=== PATIENT | male | born 1945 | race Caucasian/White ===

== ENCOUNTER 2017-01-22 10:19 | Emergency (ER) | payer MEDICARE, BC ==
[2017-01-22 08:50] LABS: BASOPHILS 0.1 %; BASOPHILS ABSOLUTE 0.01 10/3/uL (0.0-0.16); EOSINOPHILS 0.1 %; EOSINOPHILS ABSOLUTE 0.01 10/3/uL (0.0-0.53); HEMATOCRIT 29.3 % (40.0-51.0); HEMOGLOBIN 9.9 g/dL (13.6-17.8); IMMATURE GRANULOCYTES 0.7 %; IMMATURE GRANULOCYTES ABSOLUTE 0.05 10/3/uL (0.0-0.11); LYMPHOCYTES 6.6 %; LYMPHOCYTES ABSOLUTE 0.47 10/3/uL (0.67-4.30); MANUAL DIFF NO %; MEAN CORPUS HGB CONC 33.8 g/dL (32.0-36.0); MEAN CORPUSCULAR HEMOGLOB 33.7 pg (26.0-34.0); MEAN CORPUSCULAR VOLUME 99.7 fL (80-100); MONOCYTES 7.9 %; MONOCYTES ABSOLUTE 0.56 10/3/uL (0.21-1.20); NEUTROPHILS 84.6 %; NEUTROPHILS ABSOLUTE 5.97 10/3/uL (2.02-8.40); PLATELET COUNT 184 10/3/uL (150-400); RBC DISTRIBUTION WIDTH 15.5 % (12.0-16.0); RED CELL COUNT 2.94 10/6/uL (4.7-6.1); WHITE BLOOD CELLS 7.1 10/3/uL (4.5-10.5)
[2017-01-22 08:58] LABS: INTERNATIONAL NORMAL RATI 2.2 UNITS (-); PARTIAL THROMBO TIME 52.3 SEC (22.5-37.2); PROTIME (NOT ORD) 23.9 SEC (12.0-14.5)
[2017-01-22 09:03] LABS: BUN (BLOOD UREA NITROGEN) 36 MG/DL (6-23); CALCIUM, SERUM 9.6 MG/DL (8.5-10.4); CHLORIDE, SERUM 106 MMOL/L (96-112); CO2 (CARBON DIOXIDE) 27 MMOL/L (24-34); CREATININE 1.22 MG/DL (0.70-1.30); GFR AFRICAN AMERICAN 68 ML/MIN (>=60); GFR NON AFRICAN AMERICAN 59 ML/MIN (>=60); GLUCOSE, SERUM 144 MG/DL (60-99); POTASSIUM, SERUM 4.9 MMOL/L (3.5-5.3); SODIUM, SERUM 134 MMOL/L (135-148)
[~2017-01-22 10:19] MED LIST: ACET500CAP PO; ALTACE10 MG PO; ANDRODERM5 TOP; C1 PO; CO Q-10100 MG PO; COLCRYS0.6 MG PO; COREG25 PO; COUMADIN6 MG PO; DEPO-TESTOS100 MG/ML IM; DOVONCR60 TOP; DURICEF PO; FESO4 PO; FLONASE NAS; JANTOVEN1 MG PO; JANTOVEN5 MG PO; JANTOVEN6 MG PO; JOINT HEALT1 PO; KLONO5 PO; KLOR-CON 1010 MEQ PO; L40 PO; LOVENOX80 SC; OCUVITE PO; OXYCOD PO; PRILOSEC40 MG PO; SUCR PO; TESTOSTERONE INJ IM; TESTOSTERONE TOP; ULTRAM50 PO; Z300 PO; ZETIA PO; ZOCOR20 PO; [UNRECOGNIZED DRUG - OTHER] PO
[2017-01-23] MEDS ORDERED: Z300 PO (19:30)
[2017-01-23] MEDS ORDERED: ALTA5 PO (19:30)
[2017-01-23] MEDS ORDERED: COREG12 PO (19:30)
[2017-01-23] MEDS ORDERED: ZETIA PO (19:31)
[2017-01-23] MEDS ORDERED: JANTOVEN7.5 MG PO (19:31)
[2017-01-23] MEDS ORDERED: L40 PO (19:31)
[2017-01-23] MEDS ORDERED: KLOR-CON M2020 MEQ PO (19:33)
[2017-01-23] MEDS ORDERED: DOVONCR60 TOP (19:34)
[2017-01-23] MEDS ORDERED: ACET500CAP PO (19:35)
[2017-01-23] MEDS ORDERED: NASACORTAQ NAS (19:35)
[2017-01-23] MEDS ORDERED: ZOFRAN ODT4 MG PO (19:36)
[2017-01-23] MEDS ORDERED: NORCO1 TA1 PO (19:39)
== END 2017-01-22 10:24 | disposition home or self-care (01) ==
LOC: ER 10:19
PROVIDERS: Nurse Practitioner
DX: M79.81 Nontraumatic hematoma of soft tissue (principal); D64.9 Anemia, unspecified; R79.89 Other specified abnormal findings of blood chemistry; I10 Essential (primary) hypertension; I48.91 Unspecified atrial fibrillation; Z88.8 Allergy status to other drugs, medicaments and biological substances; Z79.899 Other long term (current) drug therapy; Z79.01 Long term (current) use of anticoagulants
CPT/HCPCS: 80048; 85025; 85610; 85730; 93005; 99283; A9270-GY

== ENCOUNTER 2017-01-23 18:13 | Inpatient (IN) | payer MEDICARE, BC ==
--- NOTE | ~2017-01-23 | CN ---
Consultation Report [facility] [address] [place]. [address] NAME: CJ ROGERS III : 44 STATUS : ADM IN PAT#: [id number] AGE: 71 ADM/REG DATE : 01/23/17 MR#: [id number] REPORT SERV DATE: 01/25/17 DICTATED BY: EASTON DEE DATE: 01/24/17 REPORT STATUS : Draft TRANSCRIBED BY: MODL DATE: 01/24/17 CONSULTATION DATE OF CONSULTATION: 01/23/2017 INDICATIONS: Right thigh hematoma with anticoagulation due to atrial fibrillation, mechanical aortic and mitral valve replacements. HISTORY OF PRESENT ILLNESS: Mr. Rogers is a 71-year-old male with a history of chronic atrial fibrillation and mechanical aortic and mitral valve replacements due to rheumatic heart disease, who has been on Coumadin and Lovenox recently secondary to low INRs. He was seen two days ago in the ER with spontaneous right thigh pain of several weeks' duration and was found to have a small hematoma on ultrasound. Hemoglobin and hematocrit were relatively stable at that time. He was discharged for outpatient followup. Over the past two days, he has had significant progression in his right thigh hematoma with increasing pain and some dizziness and lightheadedness suggestive of symptomatic anemia. On admission, he had a CT scan of the thigh with suggestion of some muscle compromise and was seen by Orthopedic Surgery for compartment syndrome. He was not felt to have active compartment syndrome. He underwent a vascular interventional radiology procedure today which found an active right thigh bleeding etiology which was successfully coiled. He is now resting comfortably and somewhat confused. He has had no preceding angina or shortness of breath. Edema only isolated to the right lower extremity. He does have an ICD in situ with a history of nonischemic cardiomyopathy with no shocks. He denies any orthopnea or PND. REVIEW OF SYSTEMS: Pertinent positives and negatives are as outlined above, all others negative. PAST MEDICAL HISTORY: 1. Rheumatic heart disease, status post mechanical aortic and mitral valve replacements. 2. Chronic atrial fibrillation. 3. Nonischemic cardiomyopathy, EF 40%. 4. ICD in situ. 5. Hypertension. 6. Hyperlipidemia. HOME MEDICATIONS: 1. Carvedilol 12.5 mg twice daily. 2. Ramipril 5 mg daily. 3. Jantoven as directed. 4. Lasix 40 mg daily. 5. Allopurinol 150 mg daily. 6. Zofran 4 mg p.r.n. 7. Percocet p.r.n. Consultation Report [facility] [address] [place]. [address] NAME: CJ ROGERS III : 44 STATUS : ADM IN PAT#: [id number] AGE: 71 ADM/REG DATE : 01/23/17 MR#: [id number] REPORT SERV DATE: 01/25/17 DICTATED BY: EASTON DEE DATE: 01/24/17 REPORT STATUS : Draft TRANSCRIBED BY: JASPER DATE: 01/24/17 ALLERGIES: INCLUDE HEPARIN WHICH CAUSES FLU-LIKE SYMPTOMS. HE HAS NO DOCUMENTED HISTORY OF HEPARIN-INDUCED THROMBOCYTOPENIA. SOCIAL HISTORY: He does not use tobacco products, consume alcohol, or illegal drugs. FAMILY HISTORY: Significant for CAD. PHYSICAL EXAMINATION: VIAL SIGNS: Temperature is afebrile, pulse is 85, respirations 16, blood pressure 110/70. GENERAL: A well-developed male, who is currently confused after sedation, but resting comfortably in no acute distress. HEENT: Sclerae anicteric, mucous membranes moist and without lesions. NECK: No jugular venous distention. No hepatojugular reflux, carotid upstrokes 2+ and symmetric, there are no carotid or subclavian bruit. LUNGS: Clear to auscultation without wheezes, crackles, or rales. CARDIOVASCULAR: Irregularly irregular with mechanical S1 and S2. No audible S3. No audible murmurs. No parasternal lift. PMI is not palpable. ABDOMEN: Soft and nontender. Bowel sounds positive and normoactive. No hepatomegaly, no masses, no abdominal bruit. PULSES: Radial and dorsalis pedis pulses are 2+ and symmetric. EXTREMITIES: Warm with trivial right lower extremity edema. There is a large and firm right thigh hematoma with ecchymosis from the inguinal ligament to the knee. SKIN: No clubbing or cyanosis, no rashes or lesions. IMPRESSION: 1. Mechanical aortic and mitral valve replacements due to rheumatic heart disease. 2. Chronic atrial fibrillation. 3. Nonischemic cardiomyopathy, EF 40%. 4. ICD in situ. 5. Acute blood loss anemia. 6. Acute renal failure/acute kidney injury. 7. Right thigh hematoma, spontaneous. 8. Abnormal troponin, noncardiac etiology. PLAN: Mr. Rogers has a large right thigh hematoma from a spontaneous bleed while on Lovenox and Coumadin due to subtherapeutic INRs. He had a vascular interventional radiology coiling of an active bleeding source. He is being evaluated by Orthopedic Surgery for questionable decompression. If he does need to proceed to the OR, we would allow passive INR with reduction to less than 1.8 and proceed to surgery as needed. Postoperatively, we will start low-dose heparin with no bolus and when his INR is greater than 2, recommend stopping heparin and starting aspirin 81 mg daily with an ultimate goal INR on the low end of therapeutic for mechanical mitral and aortic valves at 2.5 to 3.0. No further cardiac evaluation warranted at this time. Please call with questions. Consultation Report [facility] [address] [place]. [address] NAME: CJ ROGERS III : 44 STATUS : ADM IN PAT#: [id number] AGE: 71 ADM/REG DATE : 01/23/17 MR#: [id number] REPORT SERV DATE: 01/25/17 DICTATED BY: EASTON DEE. DATE: 01/24/17 REPORT STATUS : Draft TRANSCRIBED BY: JASPER DATE: 01/24/17 AEA/JASPER Easton Dee M.D. / [id number] CC: Cal Kay M.D.
--- NOTE | ~2017-01-23 | OP ---
Record Of Operation [facility] [address] [place]. [address] NAME: CJ ROGERS III : 43 STATUS : ADM IN [facility]#: [id number] AGE: 71 ADM/REG DATE : 01/23/17 MR#: [id number] REPORT SERV DATE: 01/30/17 DICTATED BY: TEOFILO MARIN DATE: 01/30/17 REPORT STATUS : Draft TRANSCRIBED BY: MODL DATE: 01/30/17 DATE OF PROCEDURE: 01/30/2017 PREOPERATIVE DIAGNOSIS: Right thigh recurrent hematoma. POSTOPERATIVE DIAGNOSIS: Right thigh recurrent hematoma. PROCEDURE: Right thigh debride hematoma. SURGEON: Celine Marin M.D. DEAF TEACHER: See chart. DESCRIPTION OF PROCEDURE: The patient was taken to the operating room and placed supine on the table in normal fashion without an incident. General anesthetic was induced per the anesthesiologist. The patient was carefully positioned, padded, prepped, and draped in normal sterile fashion. Sharp dissection was made through the old incision with electrocautery through the fat. The fascial sutures were opened and a large hematoma seroma was debrided. The wound was copiously irrigated with pulsatile lavage and then filled with TXA and then with Gelfoam soaked with thrombin. The wound was then closed in a layered fashion with medium drain. There was no evidence of active bleeding. COMPLICATIONS: None. SPECIMENS: None. WTB/JASPER Celine Marin M.D. / [id number] CC: Teofilo Rdoriguez Jr, MD John Laramore, M.D.
--- NOTE | ~2017-01-23 | HP ---
History And Physical [facility] [address] [place]. [address] NAME: CJ ROGERS III : 44 STATUS : ADM IN [facility]#: [id number] AGE: 71 ADM/REG DATE : 01/23/17 MR#: [id number] REPORT SERV DATE: 01/24/17 DICTATED BY: MAAME HO DATE: 01/23/17 REPORT STATUS : Draft TRANSCRIBED BY: MODL DATE: 01/23/17 DATE OF ADMISSION: 01/23/2017 CHIEF COMPLAINT: A 71-year-old male presenting with increasing right thigh pain and evidence of hematoma with acute blood loss anemia. HISTORY OF PRESENT ILLNESS: The patient's history was obtained through careful interview with the patient, coupled with review of [facility] medical records. The patient three weeks ago went to see his primary care physician to check his INR to follow up regarding aortic and mitral valve prosthetic replacements and atrial fibrillation. His INR at that time was 1.5, and his dose of Jantoven was increased, and he was also placed on therapeutic Lovenox. About a week later, he still had a subtherapeutic INR of 1.7 and so was instructed to continue Jantoven and Lovenox shots. About two weeks ago on the Lovenox shots, he went to [place] and was doing some extra activity and exercise while there and thought that he might have strained his right thigh. But then as the week continued, he noticed he had swelling and pain in that thigh out of proportion to an exercise injury. Over this last week, the right thigh has really began to hurt intensely and continually. Four nights ago, he came to the emergency department. An ultrasound demonstrated a hematoma and then because of increasing pain, he came to the emergency department again three nights ago and was placed on hydrocodone. He describes right thigh pain radiating into the groin has an "electric shock," shooting quality pain, 9/10 severity. He has had nausea with dry heaves, but no actual vomiting, a very poor appetite. In the last two days, he has had lightheadedness and near syncope. No chest pain. No shortness of breath. No change of bowel or bladder habit. REVIEW OF SYSTEMS: Otherwise, a 14-point review of systems was obtained and was negative. PAST MEDICAL HISTORY: 1. [employer]'s aortic and mitral valve replacements in 1988 prosthetic valves, on chronic Jantoven. 2. Congestive heart failure. 3. Pacemaker. 4. Atrial fibrillation, seen by Dr. Stratton. History And Physical [address] [place]. [address] NAME: CJ ROGERS III : 44 STATUS : ADM IN PAT#: [id number] AGE: 71 ADM/REG DATE : 01/23/17 MR#: [id number] REPORT SERV DATE: 01/24/17 DICTATED BY: MAAME HO DATE: 01/23/17 REPORT STATUS : Draft TRANSCRIBED BY: MODLakisha DATE: 01/23/17 5. Psoriasis. 6. Gout. 7. Diverticulosis and colon polyps, seen by Dr. Lawrence. 8. Chronic kidney disease, stage III. Baseline creatinine of 1.3 to 1.6. 9. Left shoulder DVT 1984. 10.Hypotestosteronism. PAST SURGICAL HISTORY: 1. Mechanical prosthetic valves, aortic valve, and mitral valve 1988. 2. Right hip surgery by Dr. Castrejon. 3. Pacemaker. 4. Left knee surgery. ALLERGIES: POSSIBLE INTOLERANCE TO HEPARIN?. SOCIAL HISTORY: No tobacco abuse. Social alcohol use. He is . Has children. Retired from working at a job in [employer]. FAMILY HISTORY: Myocardial infarction, cancer, and diabetes. CURRENT MEDICATIONS: Include Tylenol, allopurinol 150 mg p.o. daily, topical agents, Coreg 12.5 mg p.o. b.i.d., Zetia 10 mg p.o. daily, Lasix 40 mg p.o. daily, hydrocodone 5 every four hours p.r.n., Zofran, potassium 20 mEq p.o. daily, Altace 5 mg p.o. daily, Nasacort, and Jantoven 7.5 mg p.o. at bedtime. PHYSICAL EXAMINATION: VITAL SIGNS: Temperature 98.4, pulse 75, blood pressure 92/47, respiratory rate 22, O2 saturation 99% on room air. GENERAL: A pleasant, cooperative, male. No evidence of acute distress. HEENT: Pupils equal, round, and reactive to light. No conjunctival pallor. No scleral icterus. Nares are patent. Oropharynx is clear of obstruction. Moist mucous membranes. NECK: Trachea midline. No thyromegaly. LYMPH: No cervical lymphadenopathy. No supraclavicular lymphadenopathy. RESPIRATORY: Clear to auscultation at bases. No wheezes, rales, or rhonchi. Normal respiratory effort. CARDIOVASCULAR: Regular rate and rhythm. The patient has a good click on examination with no murmurs, no rubs, no gallops. No extremity edema is appreciated. ABDOMEN: Soft, nontender, nondistended. Normal bowel sounds auscultated throughout. No hepatosplenomegaly. Right thigh is tight. By my examination, there is no evidence of compartment syndrome at this time. There is slight bruising and discoloration consistent with underlying hematoma. DERMATOLOGICAL: Warm and dry. EXTREMITIES: No pallor. No cyanosis. PSYCHIATRIC: Normal affect. Good mood. Alert and oriented x3. LABORATORY DATA: White blood cell count 10.4, hemoglobin 8.4, hematocrit 25.1, platelets 244. Sodium 135, potassium 5.3, chloride 102, bicarb 28, BUN 47, creatinine 1.86, glucose History And Physical [address] [address] NAME: CJ ROGERS III : 43 STATUS : ADM IN [facility]#: [id number] AGE: 71 ADM/REG DATE : 01/23/17 MR#: [id number] REPORT SERV DATE: 01/24/17 DICTATED BY: MAAME HO DATE: 01/23/17 REPORT STATUS : Draft TRANSCRIBED BY: JASPER DATE: 01/23/17 133. Troponin 0.28, INR 2.4. STUDIES: 1. Chest x-ray shows cardiomegaly, but no acute abnormality compared to old x-ray. 2. CT scan of the right thigh shows an increasing right thigh hematoma measuring 22 x 11 x 8.7 cm. ASSESSMENT AND PLAN: 1. Large right thigh hematoma. No evidence of compartment syndrome though. Consult Surgery Dr. Castrejon. 2. Acute blood loss anemia, symptomatic. We will transfuse blood. 3. Coagulopathy, has been on Jantoven and therapeutic Lovenox for about three weeks. We will hold Lovenox. Continue Coumadin because of mechanical [employer]ani's aortic and mitral valves. Consult Dr. Stratton, plastic parts fabricator. If the patient does need surgical intervention, we will need to bridge with heparin. 4. Acute kidney injury. Placed on IV fluids. Transfuse blood. Hold Lasix for now. 5. Shock. Placed on IV fluids. Transfuse blood. We will write parameters for blood pressure medications. 6. Atrial fibrillation. Check telemetry. 7. Elevated troponin, but no chest pain. I believe this is a stress response? The patient is on therapeutic Coumadin. KPL/MODL Maame Ho M.D. / [id number] CC: Cal Kay M.D. Allen E Atchley, M.D. John Nash, M.D.
--- NOTE | ~2017-01-23 | IDS ---
Interim Discharge Summary [facility] [address] [place]. [address] NAME: CJ ROGERS III : 44 STATUS : ADM IN [facility]#: [id number] AGE: 71 ADM/REG DATE : 01/23/17 MR#: [id number] REPORT SERV DATE: 01/29/17 DICTATED BY: EULALIA DUNLAP DATE: 01/29/17 REPORT STATUS : Draft TRANSCRIBED BY: MODL DATE: 01/29/17 ADMISSION DATE: 01/23/2017 DISCHARGE DATE: PROBLEM LIST: 1. Right thigh hematoma, on Coumadin and Lovenox status post arteriogram and coil implanted by intervention radiologist, then he had an evacuation with Dr. Castrejon. It is improving after the evacuation. 2. Acute blood loss anemia. Had a total transfusion of 4 units of packed RBC and 2 units FFP to reverse in Coumadin, given prior to the surgery. 3. Chronic Coumadin use for mechanical valve and atrial fibrillation, the patient was on bridge therapy with Lovenox and Coumadin prior to this bleeding episodes due to the subtherapeutic INR level, and his regular dose was 6.5 mg at home, and it went up to 7.5 due to the low INR prior to this bleeding when he was also started on bridging therapy with Lovenox. We decided to go back to 7 mg on discharge and follow up at the [facility]. 4. History of ischemic cardiomyopathy, which is very stable with the current home dose of diuretics. CONSULTANTS: 1. Dr. Interventional Radiology. 2. Dr. Castrejon. 3. Dr. Stratton. PROCEDURES: 1. Arteriogram and angioplasty for the bleeding. 2. Evacuation with Dr. Castrejon. HISTORY OF PRESENT ILLNESS: This is a 71-year-old male patient, who was on the Lovenox and Coumadin for mechanical valve due to the subtherapeutic INR. Came to the hospital with right thigh hematoma and bleeding with anemia. Please see the dictated H and P. HOSPITAL COURSE: He has had a mechanical valve for many years, and recently his INR went to subtherapeutic level, and Lovenox was bridged with his Coumadin therapy, and he did have some extraneous muscle activity, but there is no other focal trauma, and he developed the swelling and pain, and he visited the emergency room at that time. His INR was 2.2, but his bleeding was continued. He ended up being in the hospital admitted with the hematoma and anemia. Dr. Castrejon was consulted for hematoma. He recommended intervention radiologist to check the arteriogram first. He went down to arteriogram. Please look at the result from the arteriogram from Dr. Garcia. He did coiling, but next day, his hematoma was not getting any better. Eventually, his INR was reversed and transfused, then Dr. Castrejon took him to the OR. He did have evacuation for hematoma, and he is doing very well from that point. His swelling is much improved, and he is back on Coumadin and heparin. His INR is 1.8. Our goal is to make his INR before the discharge to 2. We are going to continue the heparin Interim Discharge Summary [facility] [address] [place]. [address] NAME: CJ ROGERS III : 43 STATUS : ADM IN [facility]#: [id number] AGE: 71 ADM/REG DATE : 01/23/17 MR#: [id number] REPORT SERV DATE: 01/29/17 DICTATED BY: EULALIA DUNLAP DATE: 01/29/17 REPORT STATUS : Draft TRANSCRIBED BY: MODL DATE: 01/29/17 until he gets above 1.8, and his usual dose was 6.5 daily, recently went up to 7.5, so we are making his discharge Coumadin at 7 mg. He has been tolerating all these treatments, and stabilized. We are awaiting his INR to be at the goal before the discharge. EKL/MODL Eulalia Dunlap M.D. / [id number] CC: Cal Kay M.D.
--- NOTE | ~2017-01-23 | OP ---
Record Of Operation [facility] [address] [place]. [address] NAME: CJ ROGERS III : 43 STATUS : ADM IN PAT#: [id number] AGE: 71 ADM/REG DATE : 01/23/17 MR#: [id number] REPORT SERV DATE: 01/26/17 DICTATED BY: ILEANA CASTREJON DATE: 01/25/17 REPORT STATUS : Draft TRANSCRIBED BY: MODL DATE: 01/25/17 DATE OF PROCEDURE: 01/25/2017 PREOPERATIVE DIAGNOSIS: Right anterior thigh spontaneous hematoma. POSTOPERATIVE DIAGNOSIS: Right anterior thigh spontaneous hematoma. PROCEDURE PERFORMED: Right anterior thigh hematoma evacuation. SURGEON: Ileana Castrejon M.D. STRICKLER ATTENDANT: Milka Lucio. ANESTHESIA: General. PROCEDURE IN DETAIL: The patient was clearly identified. After obtaining informed consent, he was brought to the operating room at [facility] where he was induced under general anesthesia. His entire right lower extremity was prepped and draped in the usual manner from high on his thigh, and groin to his toes for access. Subsequently, the time-out procedure was performed and through an anterior approach to the mid thigh the skin was divided approximately 4 inches in length. Care was taken to avoid the lateral cutaneous femoral nerve and after entering the skin, dissection was performed through the anterior fascia into the rectus region where there was a hematoma under some pressure and massive amounts of clot, this was all carefully removed, nearly 600 mL was noted. Careful inspection through these tissues though revealed no specific arterial bleed at all. There is perhaps just slight venous ooze. Dr. Nguyen from Vascular was nearby and actually was in the room for a while to exam of the wound as well to see if there was any vascular bleeding or arterial bleeding that would be of concern for any specific care or treatment, none being found, pulsatile lavage was performed through the tissues. Again, reinspection reveals no particular bleeding at this point, which was quite good, and this concluded. Giuliana was placed to the tissues, and a large Hemovac drain was placed, and the areas were carefully closed in layers. The leg was cleansed and dressed. This was then wrapped from toes to proximal groin in a gentle fashion to help limit the ability for recurrence and avoid present. the patient returned to the recovery room in stable condition having tolerated the procedure well. ESTIMATED BLOOD LOSS: 100 mL. FLUIDS: 1000 with two units of packed cells. Approximately 600 mL of hematoma were removed. TOURNIQUET TIME: None. PATHOLOGY: None. Record Of Operation [facility] [address] [place]. [address] NAME: CJ ROGERS III : 43 STATUS : ADM IN PAT#: [id number] AGE: 71 ADM/REG DATE : 01/23/17 MR#: [id number] REPORT SERV DATE: 01/26/17 DICTATED BY: ILEANA CASTREJON DATE: 01/25/17 REPORT STATUS : Draft TRANSCRIBED BY: JASPER DATE: 01/25/17 MICROBIOLOGY: None. COMPLICATIONS: None. SPONGE AND NEEDLE COUNTS: Reportedly correct. ANTIBIOTICS: Administered appropriately preoperatively and ordered to be discontinued within 23 hours. CLEMENT/JASPER Ileana Castrejon M.D. / [id number] CC: Cal Kay M.D.
--- NOTE | ~2017-01-23 | DS ---
Discharge Summary [facility] [address] [place]. [address] NAME: CJ ROGERS III : 43 STATUS : DIS IN PAT#: [id number] AGE: 71 ADM/REG DATE : 01/23/17 MR#: [id number] REPORT SERV DATE: 02/04/17 DICTATED BY: JR. RODRIGUEZ WILLIAM JOHN DATE: 02/03/17 REPORT STATUS : Draft TRANSCRIBED BY: JASPER DATE: 02/03/17 ADMISSION DATE: 01/23/2017 DISCHARGE DATE: 02/03/2017 DISCHARGE DIAGNOSES: 1. Right thigh hematoma, on anticoagulation therapy. 2. Mechanical aortic and mitral valve replacements. 3. Acute blood loss anemia. 4. History of ischemic cardiomyopathy. OPERATIONS, PROCEDURES, AND TREATMENTS: Include: 1. Transfusion of 5 units packed red blood cells, 2 units of fresh frozen plasma between 01/23 and 01/25. 2. Chest x-ray done 01/23/2017 which showed no acute findings. 3. CT of the right lower extremity showed large variable density hematoma involving the muscles with anterior compartment of the right thigh suggestive of a subacute bleed with density being 61 Hounsfield units, measuring 22 x 11 x 8.7 cm. There was no underlying fracture. There was intact right total hip arthroplasty component. 4. Left lower extremity angiography, which showed bleeding site identified originating from the superior medial geniculate branches, a portion of which was embolized. 5. Right femur x-ray done 01/24 showed intact arthroplasty. 6. Left tibia-fibula x-ray was negative. 7. Right anterior thigh hematoma evacuation done 01/[address] Castrejon. 8. Right thigh debridement of the hematoma done by Dr. Tomlin on 01/30. DISCHARGE MEDICATIONS: Include: 1. Allopurinol 150 mg orally daily. 2. Dovonex topically for psoriasis. 3. Coreg 12.5 mg orally twice a day. 4. Zetia 10 mg orally daily. 5. Ferrous sulfate 300 mg twice a day. 6. Lasix 40 mg orally daily. 7. Multivitamin tablet orally daily. 8. Ramipril 5 mg orally daily. 9. Nasacort daily. 10.Coumadin 12.5 mg orally daily, dispensing 7 day supply. HOSPITAL COURSE: The patient was a 71-year-old male who presented to emergency room on 01/23 with increasing right pain and evidence of acute blood loss anemia and hematoma. The patient is on chronic Coumadin with a target INR of 2.5 to 3.5 for metallic prosthetic aortic and mitral valve. The patient had been stable between 6 and 7.5 mg of Coumadin for years, apparently he has began taking an immunoactive psoriasis medications 1 to 2 months ago and since that time, he has required more Coumadin. He went to his primary care physician about 3 weeks prior to presentation. His INR was only 1.5. He was placed on Lovenox as a bridge as his Jantoven (warfarin) was increased. He went to [place] 1 week Discharge [place] [id number] [place]. [address] NAME: CJ ROGERS III : 43 STATUS : DIS IN PAT#: [id number] AGE: 71 ADM/REG DATE : 01/23/17 MR#: [id number] REPORT SERV DATE: 02/04/17 DICTATED BY: JR. RODRIGUEZ WILLIAM JOHN DATE: 02/03/17 REPORT STATUS : Draft TRANSCRIBED BY: JASPER DATE: 02/03/17 later and had more exercise than normal, began to notice swelling. This continued and worsened and he presented to the emergency room. Upon initial exam, his temperature was 98.4, heart rate 75, respiratory rate 20, blood pressure 92/47. Exam was remarkable for a swollen thigh without evidence of compartment syndrome. Initial hemoglobin was 8.4, initial BUN was 47, creatinine 1.8. CT and chest x-ray are detailed above. The patient was admitted to the hospital. He was seen in consultation by Dr. Castrejon of Orthopedic Surgery. He went to Interventional Radiology for angiography and embolization of a portion of the bleeding vessel was performed by Dr. Garcia. The patient was also seen by Dr. Stratton of Cardiology at that time. After the embolization procedure, the patient's hematoma continued to expand. His INR was reversed with fresh frozen plasma. He was given blood for his acute blood loss anemia, and he was taken to the operating room by Dr. Castrejon for evacuation of the hematoma. Postop, he was placed on a heparin drip. The target was an INR of 2.5. Unfortunately, he required a second evacuation of the hematoma and it was felt by all involved that the heparin in combination with Coumadin was the biggest risk factor for his rebleed. Once the patient's INR hit 1.9, his heparin drip was discontinued. He was on between 12.5 and 15 units of Coumadin daily. The patient's INR today is 2.5. He strongly desires discharge home. He [facility] [place]. I discussed with pharmacy what dose to send him home on and we agreed on Coumadin 12.5 mg daily with an INR check Sunday [facility] the [facility]. The patient will be discharged home today 02/03/2017 and will follow up with Dr. Gerber in one week. We will get an INR checked on Sunday and will follow up with Orthopedic Surgery per their with wishes with Dr. Stratton as scheduled. DISCHARGE DIET: Will be regular. ACTIVITY: As tolerated. For discharge exam and laboratory, please see daily progress note. This discharge took 35 minutes for patient encounter, coordination of care, and documentation. DICTATED BY: Teofilo Rodriguez Jr, MD WCarlyF/JASPER Teofilo Rodriguez Jr, MD / [id number] CC: Discharge Summary [address] [address] NAME: CJ ROGERS III : 43 STATUS : DIS IN PAT#: [id number] AGE: 71 ADM/REG DATE : 01/23/17 MR#: [id number] REPORT SERV DATE: 02/04/17 DICTATED BY: JR. RODRIGUEZ WILLIAM JOHN DATE: 02/03/17 REPORT STATUS : Draft TRANSCRIBED BY: JASPER DATE: 02/03/17 Teofilo Rodriguez Jr, MD John Laramore, M.D.
--- NOTE | ~2017-01-23 | CN ---
Consultation Report [facility] [place] [address] [place]. [address] NAME: CJ ROGERS III : 43 STATUS : ADM IN PAT#: [id number] AGE: 71 ADM/REG DATE : 01/23/17 MR#: [id number] REPORT SERV DATE: 01/25/17 DICTATED BY: EASTON DEE DATE: 01/24/17 REPORT STATUS : Draft TRANSCRIBED BY: MODL DATE: 01/24/17 CARDIOLOGY CONSULT NOTE DATE OF CONSULTATION: 01/23/2017 INDICATION: Anticoagulation management with mechanical aortic valve, mechanical mitral valve, and atrial fibrillation in the setting of his spontaneous right thigh hematoma. HISTORY OF PRESENT ILLNESS: Mr. Rogers is a 71-year-old male with a history of rheumatic heart disease status post remote mechanical aortic and mitral valve replacements. His care is further complicated by chronic atrial fibrillation and a nonischemic cardiomyopathy with an LVEF of 40%. He is on chronic Coumadin with a goal INR of 2.5 to 3.5. He had been out of town recently with some subtherapeutic INRs and Lovenox was added to his regimen while awaiting a therapeutic INR. In the setting of this, he was doing more strenuous activity on a new exercise regimen and he developed relatively abrupt onset right thigh pain that slowly progressed over a period of several days. He presented to the emergency room several days ago with an INR of 2.2 while on Lovenox and had a small hematoma that appeared soft and otherwise stable. He was scheduled for outpatient followup, but his right thigh hematoma progressed rapidly over the next two days with increasing pain and symptoms of orthostasis with dizziness and lightheadedness. On arrival to the ER, he had a very large right thigh hematoma with concern for possible compartment syndrome. He had acute renal failure as well. He was given packed red blood cells and early today underwent right lower extremity angiography with Interventional Radiology that found an active bleeding source which was coiled. He has been seen by Orthopedic Surgery for consideration of decompression and hematoma evacuation. He is a bit confused at this time after sedation, but denies having any symptoms of recent chest pain or shortness of breath. He has had some isolated right lower extremity edema with his hematoma. He denies palpitations or syncope. He has had no ICD shocks with an ICD in situ since 2014. REVIEW OF SYSTEMS: Pertinent positives and negatives are as outlined above, all others negative. PAST MEDICAL HISTORY: 1. Rheumatic heart disease, status post remote mechanical aortic and mitral valve replacements. 2. Chronic atrial fibrillation. 3. CAD, nonobstructive. 4. Nonischemic cardiomyopathy, EF 40%. 5. ICD in situ. 6. Hypertension. 7. Hyperlipidemia. CURRENT MEDICATIONS: 1. Carvedilol 12.5 mg twice daily. 2. Lasix 40 mg daily. Consultation Report [place] [address] [place]. [address] NAME: CJ ROGERS III : 43 STATUS : ADM IN PAT#: [id number] AGE: 71 ADM/REG DATE : 01/23/17 MR#: [id number] REPORT SERV DATE: 01/25/17 DICTATED BY: EASTON DEE DATE: 01/24/17 REPORT STATUS : Draft TRANSCRIBED BY: JASPER DATE: 01/24/17 3. Zetia 10 mg daily. 4. Ramipril 5 mg daily. 5. Potassium supplementation. 6. Jantoven as directed. 7. Allopurinol 150 mg daily. 8. Tylenol p.r.n. 9. Stanley p.r.n. 10.Zofran p.r.n. ALLERGIES: INCLUDE HEPARIN WHICH CAUSES FLU-LIKE SYMPTOMS. THERE IS NO HISTORY OF HEPARIN- INDUCED THROMBOCYTOPENIA. SOCIAL HISTORY: He does not use tobacco products, consume alcohol, or illegal drugs. FAMILY HISTORY: Significant for CAD. PHYSICAL EXAMINATION: VITAL SIGNS: Temperature is afebrile, pulse is 85, respirations 16, and blood pressure is 110/70. GENERAL: Well-developed man who is a bit confused after sedation, but resting comfortably, lying flat. HEENT: Sclerae anicteric, mucous membranes moist and without lesions. NECK: No jugular venous distention. No hepatojugular reflux, carotid upstrokes 2+ and symmetric, there are no carotid or subclavian bruit. LUNGS: Clear to auscultation without wheezes, crackles, or rales. CARDIOVASCULAR: Irregularly irregular with mechanical S1 and mechanical S2. No audible murmurs. No parasternal lift. PMI is not palpable. ABDOMEN: Soft, nontender. Bowel sounds positive and normoactive. PULSES: Radial and dorsalis pedis pulses are 2+ and symmetric. EXTREMITIES: Warm and there is 1+ right lower extremity edema. There is a very large and firm right thigh hematoma with ecchymoses extending from the inguinal ligament down to the knee. SKIN: No clubbing or cyanosis, no rashes or lesions. IMPRESSION: 1. Mechanical aortic and mitral valve replacements due to rheumatic heart disease. 2. Chronic atrial fibrillation. 3. Nonischemic cardiomyopathy, EF 40%. 4. ICD in situ. 5. Acute blood loss anemia. 6. Acute renal failure, resolving. 7. Right thigh hematoma. 8. Abnormal troponin at 0.2, noncardiac with no significant history of CAD during acute presentation. This maybe due to noncardiac etiology with his large right thigh hematoma. Consultation Report [place] [id number] [place]. [address] NAME: CJ ROGERS III : 43 STATUS : ADM IN [facility]#: [id number] AGE: 71 ADM/REG DATE : 01/23/17 MR#: [id number] REPORT SERV DATE: 01/25/17 DICTATED BY: EASTON DEE. DATE: 01/24/17 REPORT STATUS : Draft TRANSCRIBED BY: JASPER DATE: 01/24/17 PLAN: Mr. Rogers has had a spontaneous right thigh hematoma with vascular interventional radiology coiling of an active bleeding source identified today. Orthopedic Surgery is following for consideration of hematoma evacuation and surgical decompression. If he proceed to the OR, we would allow Coumadin to passively fall to less than 1.8 off anticoagulation for now and then proceed to the OR. Postoperatively, we will start a heparin drip with no bolus. When his INR is greater than 2, we would stop heparin and start. DICTATION ENDS HERE AEA/MODL Easton Dee M.D. / [id number] CC: Cal Kay M.D.
[2017-01-23 18:51] LABS: BASOPHILS 0.3 %; BASOPHILS ABSOLUTE 0.03 10/3/uL (0.0-0.16); EOSINOPHILS 0.4 %; EOSINOPHILS ABSOLUTE 0.04 10/3/uL (0.0-0.53); ER CBC TAT 0 Hrs 08 Mins; HEMATOCRIT 25.1 % (40.0-51.0); HEMOGLOBIN 8.4 g/dL (13.6-17.8); IMMATURE GRANULOCYTES 0.4 %; IMMATURE GRANULOCYTES ABSOLUTE 0.04 10/3/uL (0.0-0.11); LYMPHOCYTES ABSOLUTE 1.35 10/3/uL (0.67-4.30); MANUAL DIFF NO %; MEAN CORPUS HGB CONC 33.5 g/dL (32.0-36.0); MEAN CORPUSCULAR HEMOGLOB 33.1 pg (26.0-34.0); MEAN CORPUSCULAR VOLUME 98.8 fL (80-100); MEAN PLATELET VOLUME 10.9 fL (9.2-13.0); MONOCYTES 6.1 %; MONOCYTES ABSOLUTE 0.63 10/3/uL (0.21-1.20); NEUTROPHILS 79.8 %; NEUTROPHILS ABSOLUTE 8.32 10/3/uL (2.02-8.40); PLATELET COUNT 244 10/3/uL (150-400); RBC DISTRIBUTION WIDTH 15.6 % (12.0-16.0); RED CELL COUNT 2.54 10/6/uL (4.7-6.1); WHITE BLOOD CELLS 10.4 10/3/uL (4.5-10.5)
[2017-01-23 19:07] LABS: CALCIUM, SERUM 9.3 MG/DL (8.5-10.4); CHLORIDE, SERUM 102 MMOL/L (96-112); CO2 (CARBON DIOXIDE) 28 MMOL/L (24-34); GLUCOSE, SERUM 133 MG/DL (60-99); INTERNATIONAL NORMAL RATI 2.4 UNITS (-); PARTIAL THROMBO TIME 53.5 SEC (22.5-37.2); POTASSIUM, SERUM 5.3 MMOL/L (3.5-5.3); PROTIME (NOT ORD) 25.7 SEC (12.0-14.5); SODIUM, SERUM 135 MMOL/L (135-148)
[2017-01-23 19:12] LABS: BUN (BLOOD UREA NITROGEN) 47 MG/DL (6-23); CHEST PAIN PROFILE TAT 0 Hrs 29 Mins; CREATININE 1.86 MG/DL (0.70-1.30); GFR AFRICAN AMERICAN 41 ML/MIN (>=60); GFR NON AFRICAN AMERICAN 35 ML/MIN (>=60); TROPONIN I 0.28 NG/ML (<0.05)
[2017-01-23] MEDS ORDERED: COREG12 PO (19:30)
[2017-01-23] MEDS ORDERED: Z300 PO (19:30)
[2017-01-23] MEDS ORDERED: ALTA5 PO (19:30)
[2017-01-23] MEDS ORDERED: JANTOVEN7.5 MG PO (19:31)
[2017-01-23] MEDS ORDERED: L40 PO (19:31)
[2017-01-23] MEDS ORDERED: ZETIA PO (19:31)
[2017-01-23] MEDS ORDERED: KLOR-CON M2020 MEQ PO (19:33)
[2017-01-23] MEDS ORDERED: DOVONCR60 TOP (19:34)
[2017-01-23] MEDS ORDERED: ACET500CAP PO (19:35)
[2017-01-23] MEDS ORDERED: NASACORTAQ NAS (19:35)
[2017-01-23] MEDS ORDERED: ZOFRAN ODT4 MG PO (19:36)
[2017-01-23] MEDS ORDERED: NORCO1 TA1 PO (19:39)
[2017-01-24 04:21] LABS: BASOPHILS 0.2 %; BASOPHILS ABSOLUTE 0.02 10/3/uL (0.0-0.16); EOSINOPHILS 0.2 %; EOSINOPHILS ABSOLUTE 0.02 10/3/uL (0.0-0.53); HEMATOCRIT 23.6 % (40.0-51.0); HEMOGLOBIN 8.1 g/dL (13.6-17.8); IMMATURE GRANULOCYTES 0.6 %; IMMATURE GRANULOCYTES ABSOLUTE 0.05 10/3/uL (0.0-0.11); LYMPHOCYTES 15.1 %; LYMPHOCYTES ABSOLUTE 1.29 10/3/uL (0.67-4.30); MEAN CORPUS HGB CONC 34.3 g/dL (32.0-36.0); MEAN CORPUSCULAR HEMOGLOB 33.1 pg (26.0-34.0); MEAN CORPUSCULAR VOLUME 96.3 fL (80-100); MEAN PLATELET VOLUME 10.7 fL (9.2-13.0); MONOCYTES 8.4 %; MONOCYTES ABSOLUTE 0.72 10/3/uL (0.21-1.20); NEUTROPHILS 75.5 %; NEUTROPHILS ABSOLUTE 6.45 10/3/uL (2.02-8.40); PLATELET COUNT 213 10/3/uL (150-400); RED CELL COUNT 2.45 10/6/uL (4.7-6.1); WHITE BLOOD CELLS 8.6 10/3/uL (4.5-10.5)
[2017-01-24 04:22] LABS: INTERNATIONAL NORMAL RATI 2.3 UNITS (-); MANUAL DIFF NO %
[2017-01-24 04:23] LABS: PARTIAL THROMBO TIME 61.9 SEC (22.5-37.2)
[2017-01-24 04:40] LABS: BUN (BLOOD UREA NITROGEN) 46 MG/DL (6-23); CALCIUM, SERUM 8.6 MG/DL (8.5-10.4); CHLORIDE, SERUM 104 MMOL/L (96-112); CO2 (CARBON DIOXIDE) 26 MMOL/L (24-34); CREATININE 1.56 MG/DL (0.70-1.30); GFR AFRICAN AMERICAN 51 ML/MIN (>=60); GFR NON AFRICAN AMERICAN 44 ML/MIN (>=60); GLUCOSE, SERUM 120 MG/DL (60-99); POTASSIUM, SERUM 4.7 MMOL/L (3.5-5.3); SGOT(AST) 119 U/L (5-40); SGPT(ALT) 35 U/L (5-65); SODIUM, SERUM 137 MMOL/L (135-148); TOTAL BILIRUBIN 0.8 MG/DL (0-1.2)
[2017-01-24 04:41] LABS: A/G RATIO 0.9 (0.7-1.9); ALBUMIN 2.9 G/DL (3.5-5.0); ALKALINE PHOSPHATASE 109 U/L (45-117); GLOBULIN 3.1 G/DL (2.5-4.1); TROPONIN I 0.25 NG/ML (<0.05)
[2017-01-24 17:57] LABS: HEMATOCRIT 25.7 % (40.0-51.0); HEMOGLOBIN 8.7 g/dL (13.6-17.8)
[2017-01-25 04:37] LABS: BASOPHILS 0.2 %; BASOPHILS ABSOLUTE 0.02 10/3/uL (0.0-0.16); EOSINOPHILS 0.3 %; EOSINOPHILS ABSOLUTE 0.03 10/3/uL (0.0-0.53); HEMOGLOBIN 7.6 g/dL (13.6-17.8); IMMATURE GRANULOCYTES 0.5 %; IMMATURE GRANULOCYTES ABSOLUTE 0.04 10/3/uL (0.0-0.11); LYMPHOCYTES 7.7 %; LYMPHOCYTES ABSOLUTE 0.67 10/3/uL (0.67-4.30); MEAN CORPUS HGB CONC 34.1 g/dL (32.0-36.0); MEAN CORPUSCULAR HEMOGLOB 32.8 pg (26.0-34.0); MEAN CORPUSCULAR VOLUME 96.1 fL (80-100); MEAN PLATELET VOLUME 10.4 fL (9.2-13.0); NEUTROPHILS 75.3 %; NEUTROPHILS ABSOLUTE 6.58 10/3/uL (2.02-8.40); PLATELET COUNT 161 10/3/uL (150-400); RBC DISTRIBUTION WIDTH 16.2 % (12.0-16.0); RED CELL COUNT 2.32 10/6/uL (4.7-6.1); WHITE BLOOD CELLS 8.7 10/3/uL (4.5-10.5)
[2017-01-25 04:40] LABS: HEMATOCRIT 22.3 % (40.0-51.0)
[2017-01-25 04:41] LABS: MANUAL DIFF NO %
[2017-01-25 04:44] LABS: INTERNATIONAL NORMAL RATI 2.8 UNITS (-)
[2017-01-25 04:46] LABS: PROTIME (NOT ORD) 29.2 SEC (12.0-14.5)
[2017-01-25 22:27] LABS: PROTIME (NOT ORD) 22.1 SEC (12.0-14.5)
[2017-01-26 01:16] LABS: BASOPHILS 0 %; EOSINOPHILS 0 %; HEMOGLOBIN 8.6 g/dL (13.6-17.8); IMMATURE GRANULOCYTES 0.5 %; IMMATURE GRANULOCYTES ABSOLUTE 0.03 10/3/uL (0.0-0.11); LYMPHOCYTES 3.6 %; LYMPHOCYTES ABSOLUTE 0.22 10/3/uL (0.67-4.30); MEAN CORPUSCULAR HEMOGLOB 32.7 pg (26.0-34.0); MEAN CORPUSCULAR VOLUME 93.5 fL (80-100); MEAN PLATELET VOLUME 9.9 fL (9.2-13.0); MONOCYTES 4.5 %; MONOCYTES ABSOLUTE 0.28 10/3/uL (0.21-1.20); NEUTROPHILS 91.4 %; NEUTROPHILS ABSOLUTE 5.66 10/3/uL (2.02-8.40); PLATELET COUNT 143 10/3/uL (150-400); RBC DISTRIBUTION WIDTH 16.7 % (12.0-16.0); RED CELL COUNT 2.63 10/6/uL (4.7-6.1); WHITE BLOOD CELLS 6.2 10/3/uL (4.5-10.5)
[2017-01-26 01:18] LABS: HEMATOCRIT 24.6 % (40.0-51.0); MANUAL DIFF NO %
[2017-01-26 01:23] LABS: INTERNATIONAL NORMAL RATI 1.9 UNITS (-); PROTIME (NOT ORD) 21.9 SEC (12.0-14.5)
[2017-01-26 01:24] LABS: PARTIAL THROMBO TIME 59.8 SEC (22.5-37.2)
[2017-01-26 01:28] LABS: CALCIUM, SERUM 8.6 MG/DL (8.5-10.4); CHLORIDE, SERUM 102 MMOL/L (96-112); CO2 (CARBON DIOXIDE) 28 MMOL/L (24-34); CREATININE 1.44 MG/DL (0.70-1.30); GFR AFRICAN AMERICAN 56 ML/MIN (>=60); GFR NON AFRICAN AMERICAN 48 ML/MIN (>=60); SODIUM, SERUM 135 MMOL/L (135-148)
[2017-01-26 01:29] LABS: BUN (BLOOD UREA NITROGEN) 41 MG/DL (6-23); GLUCOSE, SERUM 164 MG/DL (60-99)
[2017-01-27 04:57] LABS: BASOPHILS 0.1 %; BASOPHILS ABSOLUTE 0.01 10/3/uL (0.0-0.16); EOSINOPHILS 0 %; HEMATOCRIT 25.7 % (40.0-51.0); HEMOGLOBIN 8.8 g/dL (13.6-17.8); IMMATURE GRANULOCYTES 0.5 %; IMMATURE GRANULOCYTES ABSOLUTE 0.04 10/3/uL (0.0-0.11); LYMPHOCYTES 3.3 %; LYMPHOCYTES ABSOLUTE 0.26 10/3/uL (0.67-4.30); MANUAL DIFF NO %; MEAN CORPUS HGB CONC 34.2 g/dL (32.0-36.0); MEAN CORPUSCULAR HEMOGLOB 32.2 pg (26.0-34.0); MEAN CORPUSCULAR VOLUME 94.1 fL (80-100); MEAN PLATELET VOLUME 10.2 fL (9.2-13.0); MONOCYTES 10.2 %; NEUTROPHILS 85.9 %; NEUTROPHILS ABSOLUTE 6.73 10/3/uL (2.02-8.40); PLATELET COUNT 188 10/3/uL (150-400); RBC DISTRIBUTION WIDTH 16.6 % (12.0-16.0); RED CELL COUNT 2.73 10/6/uL (4.7-6.1); WHITE BLOOD CELLS 7.8 10/3/uL (4.5-10.5)
[2017-01-27 05:01] LABS: INTERNATIONAL NORMAL RATI 1.5 UNITS (-)
[2017-01-27 05:02] LABS: PROTIME (NOT ORD) 18.4 SEC (12.0-14.5)
[2017-01-27 05:11] LABS: ALBUMIN 2.5 G/DL (3.5-5.0); BUN (BLOOD UREA NITROGEN) 45 MG/DL (6-23); CALCIUM, SERUM 8.8 MG/DL (8.5-10.4); CHLORIDE, SERUM 102 MMOL/L (96-112); CO2 (CARBON DIOXIDE) 29 MMOL/L (24-34); CREATININE 1.11 MG/DL (0.70-1.30); GFR AFRICAN AMERICAN 76 ML/MIN (>=60); GFR NON AFRICAN AMERICAN 66 ML/MIN (>=60); GLUCOSE, SERUM 133 MG/DL (60-99); PHOSPHORUS, SERUM 2.5 MG/DL (2.5-4.5); POTASSIUM, SERUM 4.7 MMOL/L (3.5-5.3); SODIUM, SERUM 136 MMOL/L (135-148)
[2017-01-28 05:08] LABS: HEMATOCRIT 26.7 % (40.0-51.0); MEAN CORPUS HGB CONC 33.7 g/dL (32.0-36.0); MEAN CORPUSCULAR HEMOGLOB 32.1 pg (26.0-34.0); MEAN CORPUSCULAR VOLUME 95.4 fL (80-100); MEAN PLATELET VOLUME 9.8 fL (9.2-13.0); PLATELET COUNT 217 10/3/uL (150-400); RBC DISTRIBUTION WIDTH 16.4 % (12.0-16.0); WHITE BLOOD CELLS 6.8 10/3/uL (4.5-10.5)
[2017-01-28 05:14] LABS: INTERNATIONAL NORMAL RATI 1.7 UNITS (-); PROTIME (NOT ORD) 19.4 SEC (12.0-14.5)
[2017-01-28 05:19] LABS: MANUAL DIFF YES %
[2017-01-28 05:22] LABS: BUN (BLOOD UREA NITROGEN) 46 MG/DL (6-23); CALCIUM, SERUM 9.2 MG/DL (8.5-10.4); CHLORIDE, SERUM 102 MMOL/L (96-112); CO2 (CARBON DIOXIDE) 27 MMOL/L (24-34); CREATININE 1.14 MG/DL (0.70-1.30); GFR AFRICAN AMERICAN 74 ML/MIN (>=60); GFR NON AFRICAN AMERICAN 64 ML/MIN (>=60); POTASSIUM, SERUM 4.4 MMOL/L (3.5-5.3); SODIUM, SERUM 135 MMOL/L (135-148)
[2017-01-28 05:23] LABS: GLUCOSE, SERUM 97 MG/DL (60-99)
[2017-01-28 05:41] LABS: BAND NEUTROPHILS 3 %; IMMATURE GRANS ABSOLUTE (CALC) 0.34 10/3/uL (0.0-0.11); LYMPHOCYTES 5 %; LYMPHOCYTES ABSOLUTE (CALC) 0.34 10/3/uL (0.67-4.30); METAMYELOCYTES 4 %; MYELOCYTES 1 %; NEUTROPHILS ABSOLUTE (CALC) 6.12 10/3/uL (2.02-8.40); NUCLEATED RED BLOOD CELLS 1 /100WBC (0); PLATELET ESTIMATE ADQ (ADEQUATE); SEGMENTED NEUTROPHIL (0) 87 %; TOTAL NUCLEATED CELLS 100
[2017-01-28 05:42] LABS: ANISOCYTOSIS 1+ (5-10/OIF) (0-5/OIF)
[2017-01-29 05:19] LABS: HEMATOCRIT 25.5 % (40.0-51.0); HEMOGLOBIN 8.6 g/dL (13.6-17.8); MEAN CORPUS HGB CONC 33.7 g/dL (32.0-36.0); MEAN CORPUSCULAR HEMOGLOB 32.1 pg (26.0-34.0); MEAN CORPUSCULAR VOLUME 95.1 fL (80-100); MEAN PLATELET VOLUME 10.1 fL (9.2-13.0); PLATELET COUNT 229 10/3/uL (150-400); RED CELL COUNT 2.68 10/6/uL (4.7-6.1); WHITE BLOOD CELLS 6.5 10/3/uL (4.5-10.5)
[2017-01-29 05:23] LABS: MANUAL DIFF YES %
[2017-01-29 05:25] LABS: INTERNATIONAL NORMAL RATI 1.8 UNITS (-); PROTIME (NOT ORD) 20.4 SEC (12.0-14.5)
[2017-01-29 05:38] LABS: PARTIAL THROMBO TIME > 150.0 SEC (22.5-37.2)
[2017-01-29 05:49] LABS: BAND NEUTROPHILS 3 %; EOSINOPHILS 1 %; EOSINOPHILS ABSOLUTE (CALC) 0.07 10/3/uL (0.0-0.53); IMMATURE GRANS ABSOLUTE (CALC) 0.33 10/3/uL (0.0-0.11); LYMPHOCYTES 11 %; LYMPHOCYTES ABSOLUTE (CALC) 0.72 10/3/uL (0.67-4.30); METAMYELOCYTES 5 %; MONOCYTES 4 %; MONOCYTES ABSOLUTE (CALC) 0.26 10/3/uL (0.21-1.20); NEUTROPHILS ABSOLUTE (CALC) 5.14 10/3/uL (2.02-8.40); PLATELET ESTIMATE ADQ (ADEQUATE); SEGMENTED NEUTROPHIL (0) 76 %; TOTAL NUCLEATED CELLS 100
[2017-01-29 05:50] LABS: POLYCHROMASIA 1+ (2-5/OIF) (0-1/OIF)
[2017-01-30 04:47] LABS: HEMATOCRIT 25.9 % (40.0-51.0); HEMOGLOBIN 8.7 g/dL (13.6-17.8); MANUAL DIFF YES %; MEAN CORPUS HGB CONC 33.6 g/dL (32.0-36.0); MEAN CORPUSCULAR HEMOGLOB 32.5 pg (26.0-34.0); MEAN CORPUSCULAR VOLUME 96.6 fL (80-100); PLATELET COUNT 275 10/3/uL (150-400); RBC DISTRIBUTION WIDTH 16.2 % (12.0-16.0); RED CELL COUNT 2.68 10/6/uL (4.7-6.1); WHITE BLOOD CELLS 7.6 10/3/uL (4.5-10.5)
[2017-01-30 04:51] LABS: INTERNATIONAL NORMAL RATI 1.6 UNITS (-); PROTIME (NOT ORD) 19.1 SEC (12.0-14.5)
[2017-01-30 04:52] LABS: PARTIAL THROMBO TIME 44.6 SEC (22.5-37.2)
[2017-01-30 05:05] LABS: CALCIUM, SERUM 9.2 MG/DL (8.5-10.4); CHLORIDE, SERUM 101 MMOL/L (96-112); CO2 (CARBON DIOXIDE) 30 MMOL/L (24-34); CREATININE 1.12 MG/DL (0.70-1.30); GFR AFRICAN AMERICAN 76 ML/MIN (>=60); GFR NON AFRICAN AMERICAN 65 ML/MIN (>=60); GLUCOSE, SERUM 109 MG/DL (60-99); SODIUM, SERUM 138 MMOL/L (135-148)
[2017-01-30 05:06] LABS: BUN (BLOOD UREA NITROGEN) 32 MG/DL (6-23)
[2017-01-30 05:15] LABS: SEGMENTED NEUTROPHIL (0) 66 %; TOTAL NUCLEATED CELLS 100
[2017-01-30 05:16] LABS: BAND NEUTROPHILS 8 %; EOSINOPHILS 1 %; EOSINOPHILS ABSOLUTE (CALC) 0.08 10/3/uL (0.0-0.53); IMMATURE GRANS ABSOLUTE (CALC) 0.23 10/3/uL (0.0-0.11); LYMPHOCYTES 13 %; LYMPHOCYTES ABSOLUTE (CALC) 0.99 10/3/uL (0.67-4.30); METAMYELOCYTES 1 %; MONOCYTES 9 %; MONOCYTES ABSOLUTE (CALC) 0.68 10/3/uL (0.21-1.20); MYELOCYTES 2 %; NEUTROPHILS ABSOLUTE (CALC) 5.62 10/3/uL (2.02-8.40); PLATELET ESTIMATE ADQ (ADEQUATE); POLYCHROMASIA 1+ (2-5/OIF) (0-1/OIF)
[2017-01-31 04:56] LABS: HEMATOCRIT 27.8 % (40.0-51.0); HEMOGLOBIN 9.1 g/dL (13.6-17.8); MANUAL DIFF YES %; MEAN CORPUS HGB CONC 32.7 g/dL (32.0-36.0); MEAN CORPUSCULAR HEMOGLOB 31.7 pg (26.0-34.0); MEAN CORPUSCULAR VOLUME 96.9 fL (80-100); MEAN PLATELET VOLUME 9.8 fL (9.2-13.0); PLATELET COUNT 320 10/3/uL (150-400); RBC DISTRIBUTION WIDTH 16.2 % (12.0-16.0); RED CELL COUNT 2.87 10/6/uL (4.7-6.1); WHITE BLOOD CELLS 11.3 10/3/uL (4.5-10.5)
[2017-01-31 05:03] LABS: INTERNATIONAL NORMAL RATI 1.9 UNITS (-); PROTIME (NOT ORD) 21.6 SEC (12.0-14.5)
[2017-01-31 05:49] LABS: BAND NEUTROPHILS 3 %; IMMATURE GRANS ABSOLUTE (CALC) 0.34 10/3/uL (0.0-0.11); LYMPHOCYTES 5 %; LYMPHOCYTES ABSOLUTE (CALC) 0.57 10/3/uL (0.67-4.30); METAMYELOCYTES 3 %; MONOCYTES 1 %; MONOCYTES ABSOLUTE (CALC) 0.11 10/3/uL (0.21-1.20); NEUTROPHILS ABSOLUTE (CALC) 10.28 10/3/uL (2.02-8.40); SEGMENTED NEUTROPHIL (0) 88 %; TOTAL NUCLEATED CELLS 100
[2017-01-31 05:50] LABS: PLATELET ESTIMATE ADQ (ADEQUATE)
[2017-02-01 06:00] LABS: BASOPHILS 0.2 %; BASOPHILS ABSOLUTE 0.02 10/3/uL (0.0-0.16); EOSINOPHILS 2.2 %; HEMATOCRIT 27.6 % (40.0-51.0); HEMOGLOBIN 8.9 g/dL (13.6-17.8); IMMATURE GRANULOCYTES 3.6 %; IMMATURE GRANULOCYTES ABSOLUTE 0.33 10/3/uL (0.0-0.11); LYMPHOCYTES 8.2 %; LYMPHOCYTES ABSOLUTE 0.75 10/3/uL (0.67-4.30); MEAN CORPUS HGB CONC 32.2 g/dL (32.0-36.0); MEAN CORPUSCULAR HEMOGLOB 31.4 pg (26.0-34.0); MEAN CORPUSCULAR VOLUME 97.5 fL (80-100); MEAN PLATELET VOLUME 10.1 fL (9.2-13.0); MONOCYTES 9.4 %; MONOCYTES ABSOLUTE 0.86 10/3/uL (0.21-1.20); NEUTROPHILS 76.4 %; NEUTROPHILS ABSOLUTE 7.03 10/3/uL (2.02-8.40); PLATELET COUNT 326 10/3/uL (150-400); RBC DISTRIBUTION WIDTH 16.3 % (12.0-16.0); RED CELL COUNT 2.83 10/6/uL (4.7-6.1); WHITE BLOOD CELLS 9.2 10/3/uL (4.5-10.5)
[2017-02-01 06:02] LABS: MANUAL DIFF NO %
[2017-02-01 06:05] LABS: PROTIME (NOT ORD) 22.7 SEC (12.0-14.5)
[2017-02-01 06:13] LABS: BUN (BLOOD UREA NITROGEN) 32 MG/DL (6-23); CALCIUM, SERUM 9.4 MG/DL (8.5-10.4); CHLORIDE, SERUM 101 MMOL/L (96-112); CO2 (CARBON DIOXIDE) 30 MMOL/L (24-34); CREATININE 1.21 MG/DL (0.70-1.30); GFR AFRICAN AMERICAN 69 ML/MIN (>=60); GFR NON AFRICAN AMERICAN 59 ML/MIN (>=60); GLUCOSE, SERUM 89 MG/DL (60-99); POTASSIUM, SERUM 4.2 MMOL/L (3.5-5.3); SODIUM, SERUM 139 MMOL/L (135-148)
[2017-02-02 05:46] LABS: BASOPHILS 0.1 %; BASOPHILS ABSOLUTE 0.01 10/3/uL (0.0-0.16); EOSINOPHILS ABSOLUTE 0.16 10/3/uL (0.0-0.53); HEMOGLOBIN 8.9 g/dL (13.6-17.8); IMMATURE GRANULOCYTES 3.9 %; IMMATURE GRANULOCYTES ABSOLUTE 0.31 10/3/uL (0.0-0.11); LYMPHOCYTES 16.8 %; LYMPHOCYTES ABSOLUTE 1.34 10/3/uL (0.67-4.30); MEAN CORPUSCULAR VOLUME 97.1 fL (80-100); MEAN PLATELET VOLUME 9.9 fL (9.2-13.0); MONOCYTES 3.8 %; NEUTROPHILS 73.4 %; NEUTROPHILS ABSOLUTE 5.84 10/3/uL (2.02-8.40); PLATELET COUNT 299 10/3/uL (150-400); RBC DISTRIBUTION WIDTH 16.2 % (12.0-16.0); RED CELL COUNT 2.78 10/6/uL (4.7-6.1)
[2017-02-02 06:05] LABS: INTERNATIONAL NORMAL RATI 2.1 UNITS (-); MANUAL DIFF NO %; PROTIME (NOT ORD) 23.7 SEC (12.0-14.5)
[2017-02-03 05:21] LABS: BASOPHILS 0.4 %; BASOPHILS ABSOLUTE 0.03 10/3/uL (0.0-0.16); EOSINOPHILS 2.1 %; EOSINOPHILS ABSOLUTE 0.16 10/3/uL (0.0-0.53); HEMATOCRIT 27.7 % (40.0-51.0); IMMATURE GRANULOCYTES 2.7 %; LYMPHOCYTES 9.2 %; LYMPHOCYTES ABSOLUTE 0.69 10/3/uL (0.67-4.30); MEAN CORPUS HGB CONC 32.5 g/dL (32.0-36.0); MEAN CORPUSCULAR HEMOGLOB 31.9 pg (26.0-34.0); MEAN CORPUSCULAR VOLUME 98.2 fL (80-100); MEAN PLATELET VOLUME 9.8 fL (9.2-13.0); MONOCYTES 7.7 %; MONOCYTES ABSOLUTE 0.58 10/3/uL (0.21-1.20); NEUTROPHILS 77.9 %; NEUTROPHILS ABSOLUTE 5.87 10/3/uL (2.02-8.40); PLATELET COUNT 316 10/3/uL (150-400); RBC DISTRIBUTION WIDTH 16.3 % (12.0-16.0); RED CELL COUNT 2.82 10/6/uL (4.7-6.1); WHITE BLOOD CELLS 7.5 10/3/uL (4.5-10.5)
[2017-02-03 05:22] LABS: MANUAL DIFF NO %
[2017-02-03 05:26] LABS: INTERNATIONAL NORMAL RATI 2.5 UNITS (-); PROTIME (NOT ORD) 26.5 SEC (12.0-14.5)
[2017-02-03] MEDS ORDERED: COUMADIN10 MG PO/SL (14:42)
[2017-02-03] MEDS ORDERED: COUMADIN10 MG PO (14:45)
[2017-02-03] MEDS ORDERED: FESO4 PO (14:46)
[2017-02-03] MEDS ORDERED: MULTIPLE VIT PO (14:50)
[2017-02-03] MEDS ORDERED: OXYIR5 MG PO (14:50)
== END 2017-02-03 15:47 | disposition home or self-care (01) | DRG 464 ==
LOC: ER 18:13 → 5NO 22:30
PROVIDERS: Hospitalist; Internal Medicine; Orthopaedic Surgery; Specialist
PROC: B41F1ZZ Fluoroscopy of Right Lower Extremity Arteries using Low Osmolar Contrast (ICD-10-PCS; 2017-01-23)
PROC: 0JBL0ZZ Excision of Right Upper Leg Subcutaneous Tissue and Fascia, Open Approach (ICD-10-PCS; 2017-01-23)
PROC: 30233N1 Transfusion of Nonautologous Red Blood Cells into Peripheral Vein, Percutaneous Approach (ICD-10-PCS; principal; 2017-01-24)
PROC: 0Y9C00Z Drainage of Right Upper Leg with Drainage Device, Open Approach (ICD-10-PCS; 2017-01-25)
PROC: 30233K1 Transfusion of Nonautologous Frozen Plasma into Peripheral Vein, Percutaneous Approach (ICD-10-PCS; 2017-01-25)
DX: M79.81 Nontraumatic hematoma of soft tissue (principal); D68.32 Hemorrhagic disorder due to extrinsic circulating anticoagulants; R57.9 Shock, unspecified; N17.9 Acute kidney failure, unspecified; D62 Acute posthemorrhagic anemia; I42.9 Cardiomyopathy, unspecified; T45.515A Adverse effect of anticoagulants, initial encounter; Z95.2 Presence of prosthetic heart valve; I48.2 Chronic atrial fibrillation; Z95.810 Presence of automatic (implantable) cardiac defibrillator; I10 Essential (primary) hypertension; E78.5 Hyperlipidemia, unspecified; M19.90 Unspecified osteoarthritis, unspecified site; Z87.891 Personal history of nicotine dependence; Z88.8 Allergy status to other drugs, medicaments and biological substances; Z79.01 Long term (current) use of anticoagulants
CPT/HCPCS: 36247; 36415; 36430; 37244; 71010; 73552-RT; 73590-RT; 73700-RT; 75710; 80048; 80053; 80069; 83605; 83735; 83880; 84443; 84484; 85014; 85018; 85025; 85610; 85730; 86850; 86900; 86901; 86920; 93005; 93971; 96374; 97161-GP; 97165-GO; 99152; 99153; 99283; 99284; 99285; A9270-GY; C1769; C1894; G8978-CJ-GP; G8979-CJ-GP; G8980-CJ-GP; G8987-CK-GO; G8988-CJ-GO; J0690; J1170; J2250; J2370; J2405; J2710; J3010; P9016; P9059; Q9967